=== PATIENT | male | born 2000 | race Caucasian/White ===

== ENCOUNTER 2022-03-28 01:21 | Emergency (ER) | payer MEDICAID, SELFPAY ==
[2022-03-28 01:25] VITALS: BP 153/89; PULSE 85; RESP 20; TEMP 36.6; O2SAT 98
--- NOTE | 2022-03-28 01:40 | ED.GENADUL_ITS ---
Discharge Plan Disposition Patient Disposition: Home Condition: Improving Discharge Details Chief Complaint: GenMedical Clinical Impression: Discolored skin Primary Care Provider: None,None ED Provider: Ross Hawthorne Discharge Instructions Additional Instructions: Please follow-up with your primary care physician. Please return to the emergency department develop any worsening symptoms. Medical Decision Making 21-year-old male recent accidental overdose after being given a medication laced with fentanyl, presents with skin discoloration to his chest wall and inner aspects of bilateral arms that he noticed this evening after smoking concentrated marijuana. Patient is hemodynamically stable no hypoxia. No cyanosis to lips or fingers. Patient does have slight blue discoloration to inner aspect of both bicep regions as well as lateral chest wall where his arms meet his chest, material is easily wiped off with an alcohol swab, likely material related to detergent and/or clothing dye. No evidence of hypoxia or altered mental status at this time. Counseled patient extensively regarding the signs of overdose and given return precautions for any worsening symptoms. Sign Out No HPI General Date/Time Provider Initiated Documentation: 03/28/22 01:21 . HPI Narrative: 21-year-old male who presents drug overdose after receiving a laced medication from a friend and spent time at [facility], presents today after smoking concentrated marijuana noted that he had blue discoloration to the inner aspects of both of his arms and his chest wall, no respiratory distress no cough no loss of consciousness. Related Data Allergies Allergy/AdvReac Type Severity Reaction Status Date / Time No Known Allergies Allergy Unverified 03/28/22 01:34 General Stated Complaint: GenMedical PELON: 4 Review of Systems Narrative: Review of Systems Constitutional: negative Eyes: negative ENT: negative Cardiovascular: negative Respiratory: negative Gastrointestinal: negative : negative Musculoskeletal: negative Skin: Skin changes Neurologic: negative Psych: negative PFSH All Active Problems (Updated 03/28/22 @ 01:45 by Ross Hawthorne MD) Discolored skin (Acute) Medical History (Updated 03/28/22 @ 01:45 by Ross Hawthorne MD) ADHD (attention deficit hyperactivity disorder) Anxiety Depression [facility] Learning problem Poor hygiene Poor sleep PTSD (post-traumatic stress disorder) Surgical History Adenoidectomy ear surgery to correct ruptured ear drum left Family History Mother Substance abuse Depression Father Substance abuse Mental disorder Grandparent Essential hypertension Heart disease Sibling Substance abuse Social History Smoking/Tobacco Use Status: Never Smoking risk assessment performed?: Yes Drug use: Never Do you feel safe in your relationship?: Yes Exam Narrative Exam Narrative: Physical Examination General: alert, awake, cooperative, resting comfortably, no acute distress HEENT: normocephalic, atraumatic; PERRL, EOM intact, conjunctiva normal; no nasal discharge; moist mucous membranes, oral and pharyngeal mucosa normal, tolerating secretions Neck: supple, trachea midline; full ROM Chest: normal to inspection Respiratory: normal respiratory effort, speaking in full sentences, clear to auscultation, no wheezing, rales or rhonchi Cardiac: regular rate, regular rhythm, S1S2 intact, no murmurs rubs or gallops GI: abdomen soft, non-tender, non-distended; no palpable mass or hepatosplenomegaly Skin: Patient does have a light blue hue appears to be diet material on the inner aspects of both of his arms and lateral chest wall where his arms meet the chest wall. No evidence of cyanosis to lips or fingers Neuro: AAOx3, normal speech, moving all extremities Psych: Appropriate mood and affect Course Vital Signs Vital signs: Vital Signs Temperature 36.6 C 03/28/22 01:25 Pulse 85 03/28/22 01:25 Respiratory Rate 20 03/28/22 01:25 Blood Pressure 153/89 H 03/28/22 01:25 Pulse Oximetry 98 03/28/22 01:25 Temperature 36.6 C 03/28/22 01:25 Temperature Source Tympanic 03/28/22 01:25 Pulse 85 03/28/22 01:25 Respiratory Rate 20 03/28/22 01:25 Blood Pressure 153/89 H 03/28/22 01:25 Blood Pressure Position Sitting 03/28/22 01:25 Pulse Oximetry 98 03/28/22 01:25 Oxygen Delivery Method Room Air 03/28/22 01:25 Oxygen Flow Rate 0 03/28/22 01:25 Pain Level 0 03/28/22 01:25
== END 2022-03-28 01:48 | disposition home or self-care (01) ==
PROVIDERS: Emergency Provider Emergency Medicine
DX: R23.8 Other skin changes (principal)
CPT/HCPCS: 99281

== ENCOUNTER 2022-04-20 01:29 | Emergency (ER) | payer MEDICAID, SELFPAY ==
[2022-04-20] VITALS (18 sets, daily range): BP systolic 130–152; BP diastolic 72–91; PULSE 69–107; RESP 13–34; TEMP 36.4–37; O2SAT 96–98
--- NOTE | 2022-04-20 01:30 | RT.EKG_ITS ---
APPROVED REPORT Exam: Resting ECG Reason for Exam: chest pain Patient Location: E HR:87 bpm ECG Measurements Heart Rate 87 AXIS NM 150 P 67 QRSd 91 QRS 24 QT 349 T 59 QTc 421 Conclusion Sinus rhythm...normal P axis, V-rate 60- 99. Sinus. Normal axis. No STEMI. I have reviewed and interpreted ECG and agree with software generated interpretation.
--- NOTE | 2022-04-20 01:41 | ED.GENADUL_ITS ---
Discharge Plan Disposition Patient Disposition: Home Condition: Improving Discharge Details Clinical Impression: Vomiting and diarrhea, Alcohol use disorder Primary Care Provider: Unknown,Unknown ED Provider: Vanna Oakley Discharge Instructions Instructions: Acute Nausea and Vomiting (ED), Acute Diarrhea (ED), Alcohol Use Disorder (ED) Additional Instructions: Your potassium level was slightly low today. The remainder of your blood tests, EKG and imaging today are reassuring and show no evidence of acute concerning or significant findings. Drink plenty of fluids and get plenty of rest. Take 25mg or 1 tab of the librium every 8 hours as needed and directed for symptoms of alcohol withdrawal. Follow up with a rehabilitation center or womens volleyball coach for assistance with a substance use or alcohol treatment program. Return immediately to the emergency department if you develop any worsening or new concerning symptoms. Discharge Data Discharge Physician: Vanna Oakley Medical Decision Making 21yo M w/ a h/o daily alcohol use presents for chest pain since noon today after developing dizziness followed by syncopal episode while driving and chest pain that returned this evening after several episodes of vomiting and diarrhea. EKG notes a rate of 87, sinus, normal axis, normal intervals, no ischemic changes. BP 143/72, otherwise vitals within normal limits. Pt appears anxious but does not appear in acute alcohol withdrawal and has no tremors or diaphoresis. His Left chest wall is tender to palpation. His abdomen is soft and nontender. Suspect viral illness, consider covid, flu. Doubt PE or acs considering vomiting and diarrhea but will obtain cardiac workup including d dimer and give IVF, IV ativan, toradol, tylenol and zofran and reassess. Labs and imaging reviewed. White blood cell count 12.5. Potassium 3.2, will replete. Troponin negative. D-dimer within normal limits. Alcohol level negative. Fluvid negative. CXR negative for acute findings. Patient reassessed and he feels much better and would like to go home. He is declining to stay for repeat troponin. I think this is reasonable and is suspected his symptoms are likely secondary to a viral process in the setting of vomiting and diarrhea. Patient states he would like information from the womens volleyball coach for rehabilitation centers. He states he has gone to rehab for alcohol in the past but has not been successful. He is requesting Librium for home. Safety of Librium discussed and to not use with alcohol. Patient given womens volleyball coach information. He demonstrates no signs of alcohol withdrawal. Advised to follow up with the primary care doctor for re-evaluation. Usual and customary return precautions given prior to discharge. Medical Records Medical records reviewed: Yes I reviewed the patient's medical records. Imaging Data Radiologic Study: Radiologist's impression: XR Chest Exam date and time: 04/20/2022 2:35 AM Age: 21 years old Clinical indication: Left-sided and other: L sided chest pain, R/O acute disease TECHNIQUE: Imaging protocol: Radiologic exam of the chest. Views: 2 views. COMPARISON: SC ABD FLAT UPRIGHT PA CHEST 08/13/2017 9:57 PM FINDINGS: Lungs: Unremarkable. No consolidation. Pleural spaces: Unremarkable. No pleural effusion. No pneumothorax. Heart/Mediastinum: Unremarkable. No cardiomegaly. Bones/joints: Unremarkable. IMPRESSION: No acute findings. Lab Data Lab results reviewed: Yes I reviewed the patient's lab results. Labs: Laboratory Tests Range/Units 04/20/22 04/20/22 04/20/22 01:48 01:48 01:48 WBC (4.4-10.8) 10^3/uL 12.50 H RBC (4.36-5.78) 10^6/uL 4.94 Hgb (13.5-17.5) g/dL 14.7 Hct (40.0-50.0) % 44.2 MCV (80-95) fL 90 MCH (27.0-33.0) pg 29.8 MCHC (32.0-36.0) % 33.3 RDW (11.8-14.1) % 13.3 Plt Count (130-400) 10^3/uL 339 MPV (8.0-11.0) fL 9.2 Immature Gran % 0.3 Neutrophils % 61.3 Lymphocytes % 24.9 Monocytes % 11.8 Eosinophils % 1.0 Basophils % 0.7 Nucleated RBC % (0.0-0.3) % 0.0 Absolute Neutrophils (1.2-6.7) 10^3/uL 7.66 H Absolute Lymphocytes (1.2-3.4) 10^3/uL 3.11 Absolute Monocytes (0.1-0.8) 10^3/uL 1.48 H Absolute Eosinophils (0.0-0.7) 10^3/uL 0.13 Absolute Basophils (0.0-0.2) 10^3/uL 0.09 D-Dimer (<500) ng/mlFEU Sodium (136-145) mmol/L 139 Potassium (3.5-5.1) mmol/L 3.2 L Chloride (98-107) mmol/L 103 Carbon Dioxide (21.0-32.0) mmol/L 29.0 Anion Gap (3-11) mmol/L 7.0 BUN (7-18) mg/dL 10 Creatinine (0.70-1.30) mg/dL 1.1 Est GFR (CKD-EPI 2020) (mL/min/1.73m2) 97.34 Glucose (74-106) mg/dL 116 H Calcium (8.5-10.1) mg/dL 8.6 Magnesium (1.8-2.4) mg/dL 2.1 Total Bilirubin (0.2-1.0) mg/dL 0.4 AST (15-37) U/L 26 ALT (16-63) U/L 40 Alkaline Phosphatase (46-116) U/L 75 Troponin I (<or=60) ng/L < 50 Total Protein (6.4-8.2) g/dL 7.3 Albumin (3.4-5.0) g/dL 3.8 Ethyl Alcohol (<10) mg/dL < 3.0 COVID-19 Source SARS-CoV-2 (PCR) (Negative) Influenza Type A (PCR) (Negative) Influenza Type B (PCR) (Negative) RSV (PCR) (Negative) Range/Units 04/20/22 04/20/22 01:53 02:15 WBC (4.4-10.8) 10^3/uL RBC (4.36-5.78) 10^6/uL Hgb (13.5-17.5) g/dL Hct (40.0-50.0) % MCV (80-95) fL MCH (27.0-33.0) pg MCHC (32.0-36.0) % RDW (11.8-14.1) % Plt Count (130-400) 10^3/uL MPV (8.0-11.0) fL Immature Gran % Neutrophils % Lymphocytes % Monocytes % Eosinophils % Basophils % Nucleated RBC % (0.0-0.3) % Absolute Neutrophils (1.2-6.7) 10^3/uL Absolute Lymphocytes (1.2-3.4) 10^3/uL Absolute Monocytes (0.1-0.8) 10^3/uL Absolute Eosinophils (0.0-0.7) 10^3/uL Absolute Basophils (0.0-0.2) 10^3/uL D-Dimer (<500) ng/mlFEU 149 Sodium (136-145) mmol/L Potassium (3.5-5.1) mmol/L Chloride (98-107) mmol/L Carbon Dioxide (21.0-32.0) mmol/L Anion Gap (3-11) mmol/L BUN (7-18) mg/dL Creatinine (0.70-1.30) mg/dL Est GFR (CKD-EPI 2020) (mL/min/1.73m2) Glucose (74-106) mg/dL Calcium (8.5-10.1) mg/dL Magnesium (1.8-2.4) mg/dL Total Bilirubin (0.2-1.0) mg/dL AST (15-37) U/L ALT (16-63) U/L Alkaline Phosphatase (46-116) U/L Troponin I (<or=60) ng/L Total Protein (6.4-8.2) g/dL Albumin (3.4-5.0) g/dL Ethyl Alcohol (<10) mg/dL COVID-19 Source Nasopharynx SARS-CoV-2 (PCR) (Negative) Negative Influenza Type A (PCR) (Negative) Negative Influenza Type B (PCR) (Negative) Negative RSV (PCR) (Negative) Negative ECG Data Attestation: I personally reviewed and interpreted this ECG (s) as follows: Interpretation: rate oif 87, sinus, normal axis, no stemi. HPI General Mode of arrival: ambulatory . Date/Time Provider Initiated Documentation: 04/20/22 01:40 . Limitations to Documentation: no limitations . Information obtained by: patient . HPI Narrative: Pt is a 21yo M w/ a h/o daily alcohol use who presents for dizziness that occurred while driving followed by a syncope episode and then chest pain. Pt states he had L sided chest pain after this which then resolved and then returned this evening after trying to lay down to go to sleep after several episodes of vomiting and diarrhea. Pt states he has vomited 5 times which was red and he is unsure if it was blood. Pt states his diarrhea has been watery and brown. Pt denies any recent antibiotics, recent known sick contacts, recent fever, sore throat, ear pain, cough, shortness of breath or abdominal pain. Pt states he used to drink several drinks daily but has been trying to cut back recently and has drank 2 tall boys daily recently. He states he had 1 tall boy yesterday and 1 tall boy today and was wondering if he was going through withdrawal. He also admits to tingling in both hands and feet tonight. He also states he smoked a Dab tonight. Related Data Allergies Allergy/AdvReac Type Severity Reaction Status Date / Time No Known Allergies Allergy Unverified 04/20/22 01:35 General Stated Complaint: Chest Pain PELON: 3 Review of Systems All systems reviewed & are unremarkable except as noted in HPI and below Constitutional Constitutional: Reports as per HPI, Denies chills and Denies fever(s) Eyes Eyes: Denies blurry vision ENT Ears, Nose, Mouth, and Throat: Denies dizziness, Denies sore throat and Denies throat swelling Cardiovascular Cardiovascular: Reports chest pain and Denies dyspnea Respiratory Respiratory: Denies cough and Denies dyspnea Gastrointestinal Gastrointestinal: Denies abdominal pain, Reports diarrhea and Reports vomiting Genitourinary Genitourinary: Denies hematuria and Denies dysuria Musculoskeletal Musculoskeletal: Denies back pain and Denies numbness Integumentary/Breasts Skin/Breast: Denies lesions and Denies rash Neurologic Neurologic: Denies dizziness, Denies localized weakness and Denies numbness Allergic/Immunologic Allergic/Immunologic: Denies throat swelling [facility] All Active Problems (Updated 04/20/22 @ 03:53 by Vanna Oaklye DO) Discolored skin (Acute) Vomiting and diarrhea (Acute) Alcohol use disorder (Acute) Medical History (Updated 04/20/22 @ 03:53 by Vanna Oakley DO) ADHD (attention deficit hyperactivity disorder) Anxiety Depression History of being hospitalized [facility] 2016 Learning problem Poor hygiene Poor sleep PTSD (post-traumatic stress disorder) Surgical History Adenoidectomy ear surgery to correct ruptured ear drum left Family History Mother Substance abuse Depression Father Substance abuse Mental disorder Grandparent Essential hypertension Heart disease Sibling Substance abuse Social History Smoking/Tobacco Use Status: Current every day Tobacco Type: e-cigarettes Smoking risk assessment performed?: Yes Alcohol Intake: current Alcohol Intake frequency: a few times a week Alcohol type: beer Drug use: Socially Substance use type: marijuana Do you feel safe at home: Yes Do you feel safe in your relationship?: Yes Exam Const General: cooperative and anxious Orientation: alert, awake and oriented x3 HENMT Head: normal to inspection Ears: hearing grossly normal bilaterally and external ears normal Face and sinus: normal facial exam Throat: posterior oropharynx normal and uvula midline Eyes General: appearance normal, both eyes and all related structures Pupils: PERRL EOM: EOM intact bilaterally Neck Neck: normal visual inspection and No submandibular swelling Lymphatic: no lymphadenopathy noted Chest Chest: normal inspection of the chest and no tenderness Chest/axillae images: 1. Localized area of tenderness to left anterolateral chest. No rash, erythema, edema, ecchymoses, or lesions. Resp Effort & Inspection: normal respiratory effort and able to speak in complete sentences Auscultation: clear to auscultation bilaterally Cardio Rate: regular rate Rhythm: regular rhythm GI Inspection: normal to inspection Palpation: soft, not firm, not rigid and nontender Auscultation: hypoactive bowel sounds Back/Spine/Pelvis Thoracic/Lumbar Spine: thoracic and lumbar spine normal to inspection Pelvis: no pain with anterior-posterior compression Skin General skin exam: no rashes or lesions noted Neuro General: patient alert, patient awake and patient oriented x3 Cognition: normal cognition Speech: speech normal Motor: muscle tone normal throughout Sensory Exam: no sensory deficits noted Extrem General: normal to inspection, full ROM, capillary refill normal, no calf tenderness bilaterally and no edema Psych Appearance: grossly normal Mental Status: mental status grossly normal Speech and Movement: speech and movement normal Affect: normal affect Course Vital Signs Vital signs: Vital Signs Temperature 97.5 F L 04/20/22 01:35 Pulse 88 04/20/22 01:35 Respiratory Rate 18 04/20/22 01:35 Blood Pressure 143/72 H 04/20/22 01:35 Pulse Oximetry 96 04/20/22 01:35 Temperature 97.5 F L 04/20/22 01:35 Temperature Source Temporal Artery Scan 04/20/22 01:35 Pulse 88 04/20/22 01:35 Respiratory Rate 18 04/20/22 01:35 Blood Pressure 143/72 H 04/20/22 01:35 Blood Pressure Position Sitting 04/20/22 01:35 Pulse Oximetry 96 04/20/22 01:35 Oxygen Delivery Method Room Air 04/20/22 01:35 Oxygen Flow Rate 0 04/20/22 01:35 Pain Level 6 04/20/22 01:35
--- NOTE | 2022-04-20 01:45 | DI.RAD_ITS ---
Exam(s) XR CHEST 2V PA LATERAL EXAM: XR CHEST 2V PA LATERAL CLINICAL HISTORY: L sided chest pain, r/o acute disease TECHNIQUE: 2D digital imaging was performed of the chest. Two images were obtained. PA and lateral views were obtained. COMPARISON: No exams were available for comparison FINDINGS: MEDIASTINUM: Normal. HEART: Normal. PULMONARY VASCULATURE: Normal. LUNGS: Clear. PLEURAL SPACE: No pleural effusion or pneumothorax. BONE:Within normal limits for the patient's age. OTHER FINDINGS:Normal. IMPRESSION: No acute pulmonary findings. DATA REPOSITORY: RADIATION DOSE DELIVERED:
[2022-04-20 01:57] LABS: Abs Immature Grans 0.04 10^3/uL (0.0-0.06); Absolute Basophil Count 0.09 10^3/uL (0.0-0.2); Absolute Lymphocyte Count 3.11 10^3/uL (1.2-3.4); Basophils % 0.7; HCT 44.2 % (40.0-50.0); HGB 14.7 g/dL (13.5-17.5); Immature Grans % 0.3; Lymphocytes % 24.9; MCH 29.8 pg (27.0-33.0); MCHC 33.3 % (32.0-36.0); MCV 90 fL (80-95); MPV 9.2 fL (8.0-11.0); Monocytes % 11.8; Neutrophils % 61.3; Platelet Count 339 10^3/uL (130-400); RBC 4.94 10^6/uL (4.36-5.78); RDW 13.3 % (11.8-14.1); RDW-SD 43.6 fL
[2022-04-20 01:58] LABS: Absolute Eosinophil Count 0.13 10^3/uL (0.0-0.7); Absolute Monocyte Count 1.48 10^3/uL (0.1-0.8); Absolute Neutrophil Count 7.66 10^3/uL (1.2-6.7)
[2022-04-20] MEDS: Ketorolac 30 MG/ML VIAL IVP (02:04)
[2022-04-20] MEDS: Ondansetron 4 MG/2 ML VIAL IVP (02:04)
[2022-04-20] MEDS: ACETAMINOPHEN 1,000 MG/100 ML BTL 400 MG IVPB (02:04)
[2022-04-20] MEDS: Normal Saline 1,000 ML 1000 ML IV (02:05)
[2022-04-20] MEDS: LORazepam 2 MG/ML VIAL 1 MG IVP (02:06)
[2022-04-20 02:24] LABS: ALT 40 U/L (16-63); AST 26 U/L (15-37); Albumin 3.8 g/dL (3.4-5.0); Alkaline Phosphatase 75 U/L (46-116); BUN 10 mg/dL (7-18); Bilirubin, Total 0.4 mg/dL (0.2-1.0); CREATININE 1.1 mg/dL (0.70-1.30); Calcium 8.6 mg/dL (8.5-10.1); Chloride 103 mmol/L (98-107); Estimated GFR 97.34 (mL/min/1.73m2); Glucose 116 mg/dL (74-106); Magnesium 2.1 mg/dL (1.8-2.4); Potassium 3.2 mmol/L (3.5-5.1); Sodium 139 mmol/L (136-145); Total Protein 7.3 g/dL (6.4-8.2); Troponin I < 50 ng/L (<or=60)
[2022-04-20 02:41] LABS: ETHANOL BLOOD < 3.0 mg/dL (<10)
[2022-04-20 02:43] LABS: COVID-19 PCR Negative (Negative); Influenza A PCR Negative (Negative); Influenza B PCR Negative (Negative); RSV PCR Negative (Negative); Source Nasopharynx
[2022-04-20 02:48] LABS: D-Dimer 149 ng/mlFEU (<500)
[2022-04-20] MEDS: Potassium Chloride 20 MEQ TABCR 40 MEQ PO (03:20)
--- NOTE | 2022-04-20 03:42 | DI.VRAD_ITS ---
PROCEDURE INFORMATION: Exam: XR Chest Exam date and time: 04/20/2022 2:35 AM Age: 21 years old Clinical indication: Left-sided and other: L sided chest pain, R/O acute disease TECHNIQUE: Imaging protocol: Radiologic exam of the chest. Views: 2 views. COMPARISON: SC ABD FLAT UPRIGHT PA CHEST 08/13/2017 9:57 PM FINDINGS: Lungs: Unremarkable. No consolidation. Pleural spaces: Unremarkable. No pleural effusion. No pneumothorax. Heart/Mediastinum: Unremarkable. No cardiomegaly. Bones/joints: Unremarkable. IMPRESSION: No acute findings. Dictated and Authenticated by: Pete Foster MD. Ordering:ANGI Prabhakar MD
[2022-04-20] MEDS: chlordiazePOXIDE 25 MG CAP 100 MG PO (04:01)
== END 2022-04-20 04:01 | disposition home or self-care (01) ==
PROVIDERS: Emergency Provider Physician Assistant
DX: R11.10 Vomiting, unspecified (principal); R19.7 Diarrhea, unspecified; F10.90 Alcohol use, unspecified, uncomplicated; F90.9 Attention-deficit hyperactivity disorder, unspecified type; E87.6 Hypokalemia; Z20.822 Contact with and (suspected) exposure to COVID-19; Y90.0 Blood alcohol level of less than 20 mg/100 ml
CPT/HCPCS: 80053; 87637; 93005; 96361; 96374; 96375; 99284; 71046; 80320; 83735; 84484; 85025; 85379; 93010; 99285; J0131; J1885; J2060; J2405

== ENCOUNTER 2022-04-21 15:13 | Emergency (ER) | payer MEDICAID, SELFPAY ==
[2022-04-21 15:15] VITALS: BP 137/73; PULSE 89; RESP 16; TEMP 37; O2SAT 97
--- NOTE | 2022-04-21 15:30 | W.ED.GENAD ---
Discharge Plan Disposition Patient Disposition: Home Condition: Stable Discharge Details Clinical Impression: Alcohol use disorder Primary Care Provider: Unknown,Unknown ED Provider: Opal Fierro Home Meds and New Rx's Prescriptions: New chlordiazepoxide HCl 25 mg capsule 25 mg PO Q8H Qty: 6 0RF Discharge Instructions Additional Instructions: Please follow-up with [facility] recovery You have been placed on the list for follow-up with primary care physician to establish care Do not combine alcohol and Librium, this can cause you to stop breathing Please return should he have new or worsening complaints This additional amount of Librium should be sufficient to prevent alcohol withdrawals, please continue with your alcohol cessation after this is complete Discharge Data Discharge Date/Time-TO BE ENTERED AT DEPARTURE: 04/21/22 15:35 Medical Decision Making Patient appears well, his vitals are stable and he is not exhibiting any outward evidence of active withdrawal I have supplied him with 6 additional tablets of Librium and he will continue to follow-up with data recovery planner and search for detox bed He is given low threshold to return should he have new or worsening complaints He is discharged home in stable condition with stable vitals in the care of his partner we will distribute the medication He will continue with his alcohol cessation and follow-up with his primary care physician Of note, I reviewed documentation from yesterday's visit in addition to diagnostic labs which were at his baseline Medical Records Medical records reviewed: Yes I reviewed the patient's medical records. HPI General Date/Time Provider Initiated Documentation: 04/21/22 15:20. HPI Narrative: This 21-year-old male with history of alcoholism presents for reassessment and several more tablets of Librium. He states that he drinks approximately 1 pint of hard alcohol daily. He states he was given 6 tablets of Librium but does not feel this is enough to prevent withdrawal. He states in the past its been 3 to 4 days of symptoms. He reportedly has been in touch with the data recovery planner and is working on outpatient detox. His last drink was approximately 48 hours ago. He states he feels jittery but has been taking Librium as prescribed, last dose was approximately 6 hours prior to arrival today. He denies any abdominal pain, nausea, vomiting, hallucinations, suicidal ideation,. He does feel anxious. Denies additional illicit drug use. Denies history of seizures or delirium tremens Related Data Home Medications Medication Instructions Recorded Confirmed chlordiazepoxide HCl 25 mg capsule 25 mg PO Q8H #6 caps 04/21/22 Previous Rx's Medication Instructions Recorded chlordiazepoxide HCl 25 mg capsule 25 mg PO Q8H #6 caps 04/21/22 Allergies Allergy/AdvReac Type Severity Reaction Status Date / Time No Known Allergies Allergy Unverified 04/21/22 15:23 General Stated Complaint: ETOHWithdr PELON: 4 Review of Systems All systems reviewed & are unremarkable except as noted in HPI and below PFSH All Active Problems (Updated 04/21/22 @ 15:33 by WAN Crespo) Discolored skin (Acute) Vomiting and diarrhea (Acute) Alcohol use disorder (Acute) Medical History (Updated 04/21/22 @ 15:33 by WAN Crespo) ADHD (attention deficit hyperactivity disorder) Anxiety Depression History of being hospitalized [facility] 2016 Learning problem Poor hygiene Poor sleep PTSD (post-traumatic stress disorder) Surgical History Adenoidectomy ear surgery to correct ruptured ear drum left Family History Mother Substance abuse Depression Father Substance abuse Mental disorder Grandparent Essential hypertension Heart disease Sibling Substance abuse Social History Smoking/Tobacco Use Status: Current every day Tobacco Type: e-cigarettes Smoking risk assessment performed?: Yes Alcohol Intake: current Alcohol Intake frequency: a few times a week Alcohol type: beer Drug use: Never Substance use type: marijuana Do you feel safe at home: Yes Do you feel safe in your relationship?: Yes Exam Const General: cooperative, comfortable and no acute distress HENMT Head: normal to inspection Mouth: oral mucosae normal Other: No tongue fasciculations Eyes Sclera: sclerae normal Pupils: PERRL Resp Effort & Inspection: normal respiratory effort Cardio Rate: regular rate Rhythm: regular rhythm Skin Other: No diaphoresis Neuro General: patient alert and patient oriented x3 Cranial Nerves: tongue midline Cognition: normal cognition Other: No tremulousness Psych Appearance: well kempt Course Vital Signs Vital signs: Vital Signs Temperature 37.0 C 04/21/22 15:15 Pulse 89 04/21/22 15:15 Respiratory Rate 16 04/21/22 15:15 Blood Pressure 137/73 04/21/22 15:15 Pulse Oximetry 97 04/21/22 15:15 Temperature 37.0 C 04/21/22 15:15 Temperature Source Temporal Artery Scan 04/21/22 15:15 Pulse 89 04/21/22 15:15 Respiratory Rate 16 04/21/22 15:15 Respiratory Effort Non-Labored 04/21/22 15:18 Respiratory Pattern Normal 04/21/22 15:19 Blood Pressure 137/73 04/21/22 15:15 Blood Pressure Position Sitting 04/21/22 15:15 Pulse Oximetry 97 04/21/22 15:15 Oxygen Delivery Method Room Air 04/21/22 15:15 Oxygen Flow Rate 0 04/21/22 15:15 Pain Level 0 04/21/22 15:15 PAWSS Have you Been Recently Intoxicated or Drunk Within the Last 30 days?: Yes Have you Ever Experienced Previous Episodes of Alcohol Withdrawal?: Yes Have you ever Experienced Withdrawal Seizures?: No Have you ever Experienced Delirium Tremens(DT)s?: No Have you ever undergone Alcohol Rehabilitation Treatment (i.e, inpt ot outpatient treatment programs)?: Yes Have you ever Experienced Blackouts?: Yes Have you ever Combined Alcohol with other Downers within the last 90 days?: No Have you ever Combined Alcohol with any other Substance of Abuse during the last 90 days?: No Result: 4
== END 2022-04-21 15:35 | disposition home or self-care (01) ==
PROVIDERS: Emergency Provider Physician Assistant
DX: F10.20 Alcohol dependence, uncomplicated (principal)
CPT/HCPCS: 99283

== ENCOUNTER 2022-07-18 23:40 | Emergency (ER) | payer MEDICAID, SELFPAY ==
[2022-07-18 23:45] VITALS: BP 142/83; PULSE 107; RESP 20; TEMP 36.9; O2SAT 97
--- NOTE | 2022-07-19 00:28 | W.ED.GENAD ---
Discharge Plan Disposition Patient Disposition: Home Condition: Improving Discharge Details Clinical Impression: Pilonidal abscess Primary Care Provider: None,None ED Provider: Vanna Oakley Discharge Instructions Instructions: Abscess (ED) Additional Instructions: Keep area clean, dry and covered. Do not remove packing. Follow up with general surgery in 2 days for evaluation and packing removal. If you are unable to follow up with general surgery in 2 days, you can return to the emergency department for wound check and packing removal. Alternate tylenol and motrin as needed and directed for pain. Drink plenty of fluids and get plenty of rest. Return immediately to the emergency department at any time if you develop any worsening or new concerning symptoms such as fever, increased pain, redness or swelling. Referrals: Ronald Huang MD [ [facility] STAFF PHYSICIAN] - Discharge Data Discharge Date/Time-TO BE ENTERED AT DEPARTURE: 07/19/22 01:37 Discharge Physician: Vanna Oakley Medical Decision Making 4170 -- 22-year-old male presents with pain, redness and swelling and upper buttock since yesterday. Patient appears uncomfortable but nontoxic. He has a 2 x 2 centimeter erythematous fluctuant abscess consistent with pilonidal cyst/abscess. Case discussed with Dr. Leong with general surgery who agrees with plan for I&D but does not recommend antibiotics as the standard of care is incision and drainage only. 0110 --I&D performed at bedside with large amount of purulent drainage. Patient felt immediately better after drainage and feels comfortable going home. There is no cellulitis of area after I&D. Packing placed within wound and dressing overlying packing. Patient placed on care management list to arrange for a follow-up appointment with general surgery in 2 days for evaluation and packing removal. If unable to secure this appointment, patient advised to return to the emergency department in 2 days for wound check and packing removal. Advised on proper wound care and to not remove the packing prematurely and keep the area clean, dry and covered. Advised to return here at any time if he develops fever, redness, swelling or increased pain in the area. Medical Records Medical records reviewed: Yes I reviewed the patient's medical records. HPI General Mode of arrival: ambulatory. Date/Time Provider Initiated Documentation: 07/18/22 23:41. Limitations to Documentation: no limitations. Information obtained by: patient. HPI Narrative: Pt is a 22yo M presents with pain, redness and swelling within the crease of his upper buttocks since yesterday. Denies any known fever. Has been taking Tylenol and ibuprofen without relief. Related Data Allergies Allergy/AdvReac Type Severity Reaction Status Date / Time No Known Allergies Allergy Unverified 07/18/22 23:54 General Stated Complaint: RashLesion PELON: 4 Review of Systems All systems reviewed & are unremarkable except as noted in HPI and below Constitutional Constitutional: Reports as per HPI, Denies chills and Denies fever(s) Eyes Eyes: Denies blurry vision ENT Ears, Nose, Mouth, and Throat: Denies dizziness, Denies sore throat and Denies throat swelling Cardiovascular Cardiovascular: Denies chest pain and Denies dyspnea Respiratory Respiratory: Denies cough and Denies dyspnea Gastrointestinal Gastrointestinal: Denies abdominal pain, Denies diarrhea and Denies vomiting Genitourinary Genitourinary: Denies hematuria and Denies dysuria Musculoskeletal Musculoskeletal: Denies back pain and Denies numbness Integumentary/Breasts Skin/Breast: Reports lesions and Denies rash Neurologic Neurologic: Denies dizziness, Denies localized weakness and Denies numbness Allergic/Immunologic Allergic/Immunologic: Denies throat swelling PFSH All Active Problems (Updated 07/19/22 @ 01:12 by Vanna Oakley DO) Pilonidal abscess (Acute) Medical History (Updated 07/19/22 @ 01:12 by Vanna Oakley DO) ADHD (attention deficit hyperactivity disorder) Anxiety Depression History of being hospitalized [facility] 2016 Learning problem Poor hygiene Poor sleep PTSD (post-traumatic stress disorder) Surgical History Adenoidectomy ear surgery to correct ruptured ear drum left Family History Mother Substance abuse Depression Father Substance abuse Mental disorder Grandparent Essential hypertension Heart disease Sibling Substance abuse Social History Smoking/Tobacco Use Status: Current every day Tobacco Type: e-cigarettes Smoking risk assessment performed?: Yes Alcohol Intake: current Alcohol Intake frequency: a few times a week Alcohol type: beer Drug use: Never Substance use type: marijuana Do you feel safe at home: Yes Do you feel safe in your relationship?: Yes Exam Const General: cooperative, healthy appearing and no acute distress Orientation: alert, awake and oriented x3 HENMT Head: normal to inspection Face and sinus: normal facial exam Eyes General: appearance normal, both eyes and all related structures Pupils: PERRL EOM: EOM intact bilaterally Neck Neck: normal visual inspection and No submandibular swelling Lymphatic: no lymphadenopathy noted Chest Chest: normal inspection of the chest and no tenderness Resp Effort & Inspection: normal respiratory effort and able to speak in complete sentences Cardio Rate: regular rate GI Inspection: normal to inspection Palpation: soft Back/Spine/Pelvis Back/spine/pelvis image: 1. 2 x 2 centimeter erythematous fluctuant abscess noted just to the right of midline in gluteal crease and upper buttocks. There is mild surrounding erythema. There is no area of crepitus. Skin General skin exam: no rashes or lesions noted Neuro General: patient alert, patient awake and patient oriented x3 Cognition: normal cognition Speech: speech normal Motor: muscle tone normal throughout Sensory Exam: no sensory deficits noted Extrem General: normal to inspection, full ROM, capillary refill normal, no calf tenderness bilaterally and no edema Psych Appearance: grossly normal Mental Status: mental status grossly normal Speech and Movement: speech and movement normal Affect: normal affect Course Vital Signs Vital signs: Vital Signs Temperature 98.4 F 07/18/22 23:45 Pulse 107 H 07/18/22 23:45 Respiratory Rate 20 07/18/22 23:45 Blood Pressure 142/83 H 07/18/22 23:45 Pulse Oximetry 97 07/18/22 23:45 Temperature 98.4 F 07/18/22 23:45 Temperature Source Oral 07/18/22 23:45 Pulse 107 H 07/18/22 23:45 Respiratory Rate 20 07/18/22 23:45 Respiratory Effort Normal 07/18/22 23:50 Blood Pressure 142/83 H 07/18/22 23:45 Pulse Oximetry 97 07/18/22 23:45 Oxygen Delivery Method Room Air 07/18/22 23:45 Oxygen Flow Rate 0 07/18/22 23:45 Procedures Abscess I/D Site: Other (upper buttock, gluteal crease) Side (if applicable): Right Local Anesthetic: Lidocaine 1% and With Epi Amount of anesthesia used (mL): 12 Technique: Needle Aspiration and Incised with #11 Blade Amount of fluid expressed (mL): 10 Irrigation: Yes Packing used?: Iodoform
[2022-07-19] MEDS: oxyCODONE 5 MG TAB PO (00:33)
[2022-07-19 01:38] VITALS: BP 132/80; PULSE 85; RESP 20; TEMP 36.8; O2SAT 100
== END 2022-07-19 01:37 | disposition home or self-care (01) ==
PROVIDERS: Emergency Provider Physician Assistant
DX: L05.01 Pilonidal cyst with abscess (principal)
CPT/HCPCS: 10061